=== PATIENT | female | born 1980 | race Caucasian/White ===

== ENCOUNTER 2024-10-10 13:06 | Outpatient (AMB) | payer OTHER, SELFPAY ==
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
[2024-10-10 13:20] VITALS: BP 100/60; PULSE 62; O2SAT 98; BMI 26.0
== END 2024-10-10 13:57 | disposition home or self-care (01) ==
PROVIDERS: PCP Internal Medicine; Visit Provider Internal Medicine Rheumatology
DX: M06.9 Rheumatoid arthritis, unspecified (principal); Z79.899 Other long term (current) drug therapy
CPT/HCPCS: 99214; G2211

== ENCOUNTER 2025-02-11 13:20 | Outpatient (REF) | payer OTHER, SELFPAY ==
[2025-02-11 13:41] LABS: MANUAL DIFF FLAG NO
[2025-02-11 14:28] LABS: Basophils Percent Auto 0.7 % (0-2); Eosinophils Absolute Auto 0.2 X10*3/uL (0.0-0.4); Eosinophils Percent Auto 3.8 % (0-4); Hematocrit 35.1 % (37.0-47.0); Hemoglobin 11.9 g/dl (12.0-16.0); Imm Gran Abs Auto 0.01 X10*3/uL (0.00-0.03); Imm Gran Pct Auto 0.2 % (0.0-0.4); Lymphocytes Absolute Auto 1.3 X10*3/uL (1.2-4.9); Lymphocytes Percent Auto 28.2 % (20-40); Mean Corpuscular HGB Conc 33.9 g/dl (31.0-35.0); Mean Corpuscular Hemoglobin 28.5 pg (27.0-33.0); Mean Platelet Volume 11.8 fL (9.4-12.3); Monocytes Absolute Auto 0.5 X10*3/uL (0.1-1.2); Neutrophils Absolute Auto 2.5 x10*3/uL (2.0-8.3); Neutrophils Percent Auto 55.1 % (45-73); Platelet Count 202 X10*3/uL (160-400); Red Blood Count 4.18 X10*6/uL (4.20-5.50); Red Cell Distribution Width 12.3 % (11.0-16.0); White Blood Count 4.5 X10*3/uL (4.8-10.8)
--- OUTSIDE RECORDS SUMMARY | 2025-02-11 15:01 | XMS_ITS ---
Author Organization [employer] Address [address] [place] [id number] Care Team Providers Care Marketing Administrator Name Role Phone DONNA WELCH, [facility] Primary Care Provider Un available GABI BRENNER Unavailable [phone] REASON FOR VISIT BREAST U/S ORDER Encounters Encounter Location Date Provider Diagnosis [facility] [address] [address] 08/13/2024 GABI BRENNER Inconclusive mammogr am R92.2 and Family history of malignant neoplasm of breast Z80.3 Assessments Encounter Date Diagnosis (ICD Code) Assessment Notes Treatment Notes Treatment Clinical Notes Section Notes 08/13/2024 Inconclusive mammogram (ICD-10 - R92.2) 08/13/2024 Family history of malignant neoplasm of breast (ICD-10 - Z80.3) Plan Of Treatment Pending Test Test Name Order Date Screening Bilateral Breast Ultrasound Progress Notes * KEILY VILLANUEVA:1980 (43 yo F)Acc No.[id number]:08/13/2024 Patient:?VAHE VILLANUEVAI :1980???Age:43 Y???Sex:Female Address:[address] [place] [address], [id number] Subjective: * Chief Complaints: * ???BREAST U/S ORDER * Medical History:? * Surgical History:? * Hospitalization/Major Diagno stic Procedure:? * Medications:? Objective: * Vitals:? * Physical Examination:? Assessment: * Assessment: 1.?Inconclusive mammogram - R92.2???2.?Family history of malignant neoplasm of breast - Z80.3??? Plan: * Treatment: 2.?Family history of maligna nt neoplasm of breast?Imaging: Screening Bilateral Breast Ultrasound * Procedure Codes:? * true * Date:? Generated for Ledy rodriguez/Eugenie/Júniorsmitting on:?02/11/2025 03:01 PM EDT
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
--- OUTSIDE RECORDS SUMMARY | 2025-02-11 15:01 | XMS_ITS | Continuity of Care Document ---
Author Organization [facility] Adult Address [address] [place] [id number]- Care Team Providers Care Genetic Technologist Name Role Phone Sudheer Khan MD Primary Care Physician Encounter [facility] Date(s): 01/29/25 - 02/05/[address] [address]- Encounter Diagnosis Rheumatoid arthritis(Discharge Diagnosis) - 01/29/25 Anxiety(Discharge Diagnosis) - 01/29/25 Annual physical exam(Discharge Diagnosis) - 01/29/25 Skin lump of arm(Discharge Diagnosis) - 01/29/25 Attending Physician: Sudheer Khan MD Encounter Type: Office Visit Allergies, Adverse Reactions, Alerts Substance Criticality Severity Reaction Reaction Severity Status Bactrim Lip swelling Active Immunizations Given and Recorded Vaccine Date Status Refusal Reason tetanus/diphtheria/pertussis, acel(Tdap) 1 01/29/25 Given tetanus/diphtheria/pertussis, acel(Tdap) 11/16/13 Given influenza virus vaccine, inactivated 08/18/24 Florencio rded influenza virus vaccine, inactivated 08/19/23 Florencio rded influenza virus vaccine, inactivated 07/27/22 Florencio rded influenza virus vaccine, inactivated 10/23/21 Florencio rded influenza virus vaccine, inactivated 08/26/20 Florencio rded influenza virus vaccine, inactivated 09/19/19 Florencio rded influenza virus vaccine, inactivated 08/14/19 Florencio rded influenza virus vaccine, inactivated 08/15/18 Florencio rded [id number] 12y+ bivalent booster vax 08/19/22 Recorded SARS-CoV-2 (COVID-19) mRNA BNT-162b2 vac 2 11/05/21 Given SARS-CoV-2 (COVID-19) mRNA BNT-162b2 vac 04/20/21 Recorded SARS-CoV-2 (COVID-19) mRNA BNT-162b2 vac 03/28/21 Recorded Influenza Virus Vaccine (oldterm) 07/23/20 Recorde d Influenza Virus Vaccine (oldterm) 08/08/19 Recorde d 1Result Comment: [id number] 2Result Comment: [facility]# [id number] Medications citalopram 20 mg oral tablet 20 mg, 1, tablet, By Mouth, Daily, # 90 tablet, Refills 3, Tot. Refills 3, Maintenance, 01/29/25 11:02:00 AM EDT, Route to Pharmacy Electronically, [facility] # [id number], Partial fill upon patient request if the prescription is for a schedule II opioid drug., 170, cm, 01/29/25 10:35:00 EDT, Height, 77.4, kg, 12/24/23 11:46:00 EST, Dry Weight Start Date: 01/29/25 Stop Date: 01/24/26 Status: Ordered Quantity: 90.0 Unit: tablet Repeat number: 4 hydroxychloroquine 200 mg oral tablet 400 mg, 2, tablet, By Mouth, Daily, # 180 tablet, Refills 0, Maintenance, 04/23/22 3:12:00 PM EDT, Partial fill upon patient request if the prescription is for a schedule II opioid drug. Start Date: 04/23/22 Status: Ordered Quantity: 180.0 Unit: tablet Repeat number: 1 leucovorin 5 mg oral tablet 1 tablet = 5 mg, By Mouth, Daily, # 120 tablet, 0 Refills, Maintenance, 04/23/22 3:12:00 PM EDT, Tablet, Partial fill upon patient request if the prescription is for a schedule II opioid drug. Start Date: 04/23/22 Status: Ordered Quantity: 120.0 Unit: tablet Repeat number: 1 LORazepam 0.5 mg oral tablet 0 Refills, Maintenance, 01/29/25 11:02:00 AM EDT, Partial fill upon patient request if the prescription is for a schedule II opioid drug. Start Date: 01/29/25 Status: Ordered Repeat number: 1 methotrexate 2.5 mg oral tablet 10 tablet = 25 mg, By Mouth, Every week, # 4 tablet, 0 Refills, Maintenance, 07/24/20 9:12:00 AM EDT, Tablet Start Date: 07/24/20 Status: Ordered Quantity: 4.0 Unit: tablet Repeat number: 1 PEG-3350 with Electrolytes (Eqv-GoLYTELY) oral powder for reconstitution 240 mL, By Mouth, Every 15 minutes, split prep method 1st half 5 pm evening before , 2nd half 6 hours prior to procedure, # 1 each, 0 Refills, Maintenance, 01/18/24 12:58:00 PM EST, How do you roll? 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 Rheumatoid arthritis Confirmed Active Vasovagal reaction Confirmed Active Diagnosis Diagnosis Type Effective Dates Health Status Clinical Service Informant Rheumatoid arthritis Discharge Diagnosis 01/29/25 Anxiety Discharge Diagnosis 01/29/25 Annual physical exam Discharge Diagnosis 01/29/25 Skin lump of arm Discharge Diagnosis 01/29/25 Vital Signs Most recent to oldest [Reference Range]: 1 Height 170 cm (01/29/25 10:35 AM) Weight 77.7 kg (01/29/25 10:35 AM) Oxygen Saturation [94-100 %] 100 % (01/29/25 10:35 AM) Pulse Rate [55-90 bpm] 62 bpm (01/29/25 10:35 AM) Body Mass Index [18.5-24.99 kg/m2] 26.89 kg/m2 *H* (01/29/25 10:35 AM) Blood Pressure [90-138/55-84 mm Hg] 119/ 67mm Hg (01/29/25 10:35 AM) Temperature [96.8-100.4 DegF] 97.9 DegF (01/29/25 10:35 AM) Blood pressure sites Arm, right (01/29/25 10:35 AM) Temperature Route Oral (01/29/25 10:35 AM) Social History Social History Type Response Smoking Status Former smoker; Tobac co use times per day: smoked in high school; entered on: 08/21/16 Sex Sex Representation Female (finding) Note * Rodrigo Zhang: PERFORM Event Display: Patient Education/Instruction Authored Date: [id number] Ambulatory Adult Visit Summary [facility] [address], [place] [id number] Name: LIGIA VILLANUEVA : 1980?? Visit: 01/29/2025 10:32?? Ambulatory Visit Instructions ?? Your Care Team Primary Care Provider Sudheer Khan MD? This Visit Provider Sudheer Khan MD Your Diagnosis Rheumatoid arthritis Anxiety Annual physical exam Screening for diabetes mellitus Screening for hyperlipidemia Screening for thyroid disorder Vitals Signs Temperature: 97.9 DegF Height: 170 cm Pulse Rate: 62 bpm Weight: 77.7 kg Systolic Blood Pressure: 119 mm Hg Body Mass Index:??26.89 kg/m2??High Diastolic Blood Pressure: 67 mm Hg Body surface area: 1.92 Oxygen Saturation: 100 % ?? What to do next Follow-Up Appointments Follow Up with??Sudheer Khan MD When:??02/17/2026 11:30 AM EDT Why: physical Where: [address]rd Floor [facility] [place] [address]- Future Orders CBC w/ Differential - Routine, Once, 01/29/25 10:48:00 EDT, Single or Recurring Future Order, [facility], Blood?? Lipid Panel - Routine, Once, 01/29/25 10:48:00 EDT, Single or Recurring Future Order, [facility], Blood?? Vitamin D 25 Hydroxy Level - Routine, Once, 01/29/25 10:48:00 EDT, Single or Recurring Future Order, [facility], Blood?? Complete Urinalysis (Urinalysis Complete) - Routine, Once, 01/29/25 10:48:00 EDT, Single or Recurring Future Order, [facility], Urine?? TSH Rfx on Abnormal to Free T4 - Routine, Once, 01/29/25 10:48:00 EDT, Single or Recurring Future Order, [facility], Blood?? Comprehensive Metabolic Panel - Routine, Once, 01/29/25 10:49:00 EDT, Single or Recurring Future Order, [facility], Blood?? Medications The list below reflects the information in our records and provided by you today along with any changes made during this visit. Please continue your medications until treatment is completed or stopped by your provider. If this is different from the information you have or there are other questions,please contact the prescribing provider. What How Much When Instructions Changed Citalopram (citalopram 20 mg oral tablet) 1 tab(s) Oral Daily Duration: [address] [facility] Unchanged Hydroxychloroquine (hydroxychloroquine 200 mg oral tablet) 2 tab(s) Oral Daily Unchanged Leucovorin (leucovorin 5 mg oral tablet) 1 tab(s) Oral Daily Duration: 10 doses/times Unchanged Lorazepam (LORazepam 0.5 mg oral tablet) Unchanged Methotrexate (methotrexate 2.5 mg oral tablet) 10 tab(s) Oral Every week Unchanged PEG Electrolyte Solution (PEG-3350 with Electrolytes (Eqv-GoLYTELY) oral powder for reconstitution) 240 Milliliter Oral Every 15 minutes split prep method ??1st half 5 pm evening before , ??2nd half 6 hours prior to procedure ?? Pharmacy Information [facility] # 302: [address] [place] [id number] [phone] ?? What How Much When Comments Stop Taking Diclofenac (diclofenac sodium 75 mg oral delayed releasetablet) 1 tab(s) Oral Twice a day as needed for for pain Duration: 30 Days Test Performed Below is a partial list of the tests performed during your Visit. You may have had other tests and procedures not included in this list. Please discuss all test results with your provider. CBC w/ Differential?-- Results Pending -- Comprehensive Metabolic Panel?-- Results Pending -- Lipid Panel?-- Results Pending -- TSH Rfx on Abnormal to Free T4?-- Results Pending -- Urinalysis Complete?-- Results Pending -- Vitamin D 25 Hydroxy Level?-- Results Pending -- Medications and Immunizations Administered Immunizations Given During Visit Given Vaccine Date tetanus/diphtheria/pertussis, acel(Tdap) 01/29/2025 Comments : [id number] Medications Given During Visit Medication ?? Dose ?? Route ?? Last Dose Times ?? tetanus/diphtheria/pertussis, acel(Tdap)?0.50 mL?? Intramuscular?? 29-JAN-2025 10:55:00.00?? Allergies (NKA means No Known Allergies) Bactrim??(Lip swelling) Common Emergency Awareness Tips IS IT A STROKE? Act FAST and Check for these signs: FACE Does the face look uneven? ARM Does one arm drift down? SPEECH Does their speech sound strange? TIME Call at any sign of stroke ?? Heart Attack Signs Chest discomfort: Most heart attacks involve discomfort in the center of the chest and lasts more than a few minutes, or goes away and comes back. It can feel like uncomfortable pressure, squeezing, fullness or pain. Discomfort in upper body: Symptoms can include pain or discomfort in one or both arms, back, neck, jaw or stomach. Shortness of breath: With or without discomfort. Other signs: Breaking out in a cold sweat, nausea, or lightheaded. Remember, MINUTES DO MATTER. If you experience any of these heart attack warning signs, call to get immediate medical attention! ?? Smoking can increase your chances of developing chronic health problems and can cause harmful effects to other family members in your house. If you smoke, you are strongly encouraged to quit. Please call [facility] at [phone] or [phone] 2000 ([phone]) or log in to [email or web address] for referrals to smoking cessation programs. ?? The National Suicide Prevention Hotline is available 06/06 if you or someone you know needs to find a reason to keep living. By calling 4-929-165-nosu (8636) you'll be connected to a skilled, trained counselor at a crisis center in your area. [employer] [facility] Portal You can view and manage your care through the patient portal or by using a health care sabrina of your choosing. [employer] is a website that allows you to securely view your medical information including your hospital discharge summary, office visit summaries, medications and follow-up visits. You can also request appointments, renew medications, and request access to your medical information using a health care sabrina of your choosing, or just ask a question. You can enroll at [email or web address] or register during your next office visit. [facility], in keeping with [facility] guidance, no longer requires face masks for staff, patientsor visitors in most situations. Similiar to time spent indoors at other locations, there is the chance that you were exposed to repiratory viruses during your time with us (such as flu or COVID-19). If you develop symptoms concerning for a viral respiratory infection, please seek testing (and treatment if indicated) from your medical provider or home test kit. ?? Disclaimer: The information provided is of a general nature and is intended to be used in conjunction with the recommendations and advice of your health care practitioner. Every effort has been made to ensure that the information provided is accurate and complete at the time it is provided to you however, as your needs change, or, as new information becomes available, different or additional instructions may be required. ?? If you have questions, please consult with your primary care provider or pharmacist, as appropriate. This information is not intended to serve as substitution for assessment and evaluation by a qualified health care provider. If you do not have a primary care provider, you may find a [facility] provider by calling [employer] [facility] Link at [phone]. Patient Care team information Care Team Personnel Name: Sudheer Khan MD Position: [facility] Physician - Primary Care Member Role: PCP Address: [address] [facility] [address] [place] [address]- Telecom: Care Team Related Persons Name: MARTHA GANN Name: DEMETRIUS VILLANUEVA Insurance Providers Guarantor name: LIGIA VILLANUEVA Health Plan Information #: 1 Payer: [facility] H61 Member Number: [id number] Policy Number: NA Group Number: [id number] Health Plan Information #: 2 Payer: [facility] Member Number: [id number] Policy Number: NA Group Number: [id number]
--- OUTSIDE RECORDS SUMMARY | 2025-02-11 15:01 | XMS_ITS | Clinical Summary ---
Author Organization [facility] Address [address] [place] [address] Care Team Providers Care Hardware Trainer Name Role Phone Unavailable Primary Care Provider Unavailabl e Surgical History Surgery Date Site/Laterality Comments WISDOM TOOTH EXTRACTION PROCEDURE: HISTORICAL WISDOM TEETH EXTRACTION Medical History Medical History Date Comments Anxiety state, unspecified DX:An xiety state, unspecified Other specified personal his tory presenting hazards to health(V15.89) DX:Other specifie d personal history presenting hazards to health(V15.89); COMMENT: 5 years ago abnormal pap Family History Medical History Relation Name Comments Other cancer Maternal Grandfather oral ca ncer Breast cancer Maternal Grandmother dx 03/14 1 2nd time Hypertension Maternal Grandmother Relation Name Status Comments Brother Alive Father Alive Maternal Grandfather (Age 72) [place], oral cancer Maternal Grandmother Alive Mother Alive Paternal Grandfather Paternal Grandmother Sister 1 Alive Sister 2 Alive Son Alive Social History Tobacco Use Types Packs/Day Years Used Date Smoking Tobacco: Former Cigarettes Q uit: 08/03/2008 Smokeless Tobacco: Never Alcohol Use Standard Drinks/Week Comments Yes 0 (1 standard drink = 0.6 oz pur e alcohol) Comments Unknown Sex and Gender Information Value Date Recorded Sex Assigned at Not on file Legal Sex Female 8:20 AM EST Gender Identity Not on file Sexual Orientation Not on file Obstetrics History Plan of Treatment Health Maintenance Due Date Last Done Comments Breast Cancer Screening 1982 Hepatitis B Vaccines (1 of 3 - 19+ 3-dose series) 2001 Cervical Cancer Screening: Pap Smear 2003 DTaP,Tdap,and Td Vaccines (3 - Td or Tdap) 11/16/2023 11/16/2013, 04/28/2011 COVID-19 Vaccine ( - season) 2024 11/05/2021, 04/20/2021, 03/28/2021 Depression Screening 08/30/2024 HIV Screening 08/30/2024 Hepatitis C Screening 08/30/2024 Social Influencers of Health Screening 08/30/2024 Influenza Vaccine Completed 08/18/2024, , 07/27/2022, Additional history exists HIB Vaccines Aged Out No longer eligi ble based on patient's age to complete this topic HPV Vaccines Aged Out No longer eligi ble based on patient's age to complete this topic Hepatitis A Vaccines Aged Out No long er eligible based on patient's age to complete this topic IPV Vaccines Aged Out No longer eligi ble based on patient's age to complete this topic MMR Vaccines Aged Out No longer eligi ble based on patient's age to complete this topic Meningococcal ACWY Vaccine Aged Out N o longer eligible based on patient's age to complete this topic Meningococcal B Vacine Aged Out No lo nger eligible based on patient's age to complete this topic Pneumococcal Vaccine: Pediatrics (0 to 5 Years) and At-Risk Patients (6 to 64 Years) Aged Out No longer eligible based on patient's age to complete this topic RSV Immunization Patients Under 20 months Aged Out No longer eligible based on patient's age to complete this topic Varicella Vaccines Aged Out No longer eligible based on patient's age to complete this topic [place] [address] [place] [address]
--- OUTSIDE RECORDS SUMMARY | 2025-02-11 15:01 | XMS_ITS ---
Author Name [facility] Organization Unknown Problems Problem Status Onset Date Problem Type Date of Resolution Source Inconclusive mammogram active EncounterDiagnosisAct [facility] Family history of malignant neoplasm of breast active EncounterDiagnosisAct [facility] Encounters Encounter Type Encounter Reason Primary Diagnosis Location Date Ambulatory Inconclusive mammogram Inconclusive mammogram [facility] 10/26/2024 Care Team Organization Name Specialty Phone Email Start Date End Da dina [facility] 10/30/2024 [facility] 10/27/2024
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
--- OUTSIDE RECORDS SUMMARY | 2025-02-11 15:02 | XMS_ITS | Encounter Summary ---
Author Organization [employer] Address [address] [place] [address] Care Team Providers Care Ice Cream Freezer Helper Name Role Phone Unavailable Primary Care Provider Unavailabl e Encounter Details Date Type Department Care Team (Late st Contact Info) Description 05/10/2023 Abstract [facility] ADULT DENTAL [address] [place], [place] [phone] Андрей Tyler DDS [address] [place], [place] [phone] Social History Tobacco Use Types Packs/Day Years Used Date Smoking Tobacco: Never Passive Smoke Exposure: Never Smokeless Tobacco: Never Alcohol Use Standard Drinks/Week Comments Never 0 (1 standard drink = 0.6 oz pur e alcohol) Comments Unknown Sex and Gender Information Value Date Recorded Sex Assigned at Female 05/10/2023 8:10 AM EDT Legal Sex Female 8:06 AM EDT Gender Identity Female 05/10/2023 8:10 AM EDT Sexual Orientation Straight 05/10/2023 8: 10 AM EDT COVID-19 Exposure Response Date Recorded In the last 10 days, have yo u been in contact with someone who was confirmed or suspected to have Coronavirus/COVID-19? No / Unsure 05/10/2023 8:11 AM EDT documented as of this encounter Plan of Treatment Not on file documented as of this encounter Visit Diagnoses Not on filedocumented in this encounter
--- OUTSIDE RECORDS SUMMARY | 2025-02-11 15:02 | XMS_ITS | Encounter Summary ---
Author Organization [employer] Address [address] [facility] [address] [place] [address] Care Team Providers Care Lean Six Sigma Senior Specialist Name Role Phone Unavailable Primary Care Provider Unavailabl e Encounter Details Date Type Department Care Team (Late st Contact Info) Description 05/10/2023 Abstract [facility] ADULT DENTAL [address] [place], [place] [phone] Андрей Tyler DDS [address] [place], [place] [phone] Social History Tobacco Use Types Packs/Day Years [...]
--- OUTSIDE RECORDS SUMMARY | 2025-02-11 15:02 | XMS_ITS | Clinical Summary ---
Author Organization [employer] Address [address] [place] [address] [address] [place] [address] Care Team Providers Care Staff Radiologist Name Role Phone Unavailable Primary Care Provider Unavailabl e Allergies No known active allergies Active Problems Problem Noted Date Diagnosed Date Necrosis of dental pulp 05/10/2023 Dental caries 05/10/2023 Social History Tobacco Use Types Packs/Day Years Used Date Smoking Tobacco: Never Passive Smoke Exposure: Never Smokeless Tobacco: Never Tobacco Cessation:Counseling Given: No Alcohol Use Standard Drinks/Week Comments Never 0 (1 standard drink = 0.6 oz pur e alcohol) Comments Unknown Sex and Gender Information Value Date Recorded Sex Assigned at Female 05/10/2023 8:10 AM EDT Legal Sex Female 8:06 AM EDT Gender Identity Female 05/10/2023 8:10 AM EDT Sexual Orientation Straight 05/10/2023 8: 10 AM EDT Plan of Treatment Health Maintenance Due Date Last Done Comments Dental Oral Exam 1982 Dental Prophylaxis 1982 Dental X-Ray: Bitewings 1982 Dental X-Ray: Full Mouth 1982 Depression Screening 1982 HIV Screening 1982 SDOH Screening 1982 Alcohol/Substance Use Screening 1994 Family Planning (PISQ) 1997 Hepatitis C Screening 2000 Hepatitis B Vaccines (1 of 3 - 19+ 3-dose series) 2001 Pap Smear 2003 Cervical Cancer Screening 2012 HPV/Cotest 2012 Mammogram 2022 DTaP/Tdap/Td Vaccines (2 - Td or Tdap) 11/16/2023 11/16/2013 Tobacco Screening 05/10/2024 05/10/2023 COVID-19 Vaccine ( season) 2024 08/19/2022, 11/05/2021, 04/20/2021, Additional history exists Influenza Vaccine (#1) 2024 2, 07/27/2022, 10/23/2021, Additional history exists Zoster Vaccines (1 of 2) 2032 RSV Patients and Patients Aged 60 years or older (1 - 1-dose 75+ series) 2057 HIB Vaccines Aged Out No longer eligi [...] patient's age to complete this topic Meningococcal Vaccine Aged Out No isaac mahsa eligible based on patient's age to complete this topic Pneumococcal Vaccine: Pediatrics (0 to 5 Years) and At-Risk Patients (6 to 49) Years) Aged Out No longer eligible based on patient's age to complete this topic RSV under 20 months Aged Out No longe r eligible based on patient's age to complete this topic Rotavirus Vaccines Aged Out No longer eligible based on patient's age to complete this topic Insurance DENTAL - C[employer] DENTAL PPO
--- OUTSIDE RECORDS SUMMARY | 2025-02-11 15:02 | XMS_ITS | Encounter Summary ---
Author Organization [employer] Address [address] [facility] [address] [place] [address] Care Team Providers Care Top Loader Name Role Phone Unavailable Primary Care Provider Unavailabl e Encounter Details Date Type Department Care Team (Late st Contact Info) Description 05/10/2023 Abstract [facility] ADULT DENTAL [address] [place], [place] [phone] Андрей Tyler DDS [address] [place], [place] [phone] Social History Tobacco Use Types Packs/Day Years [...]
--- OUTSIDE RECORDS SUMMARY | 2025-02-11 15:02 | XMS_ITS | Patient Health Record ---
Author Organization [facility] Address [address] [place] [address] Care Team Providers Care Baling Machine Operator Name Role Phone DONNA WELCH, [facility] Primary Care Provider Un available BRENNER, LISA Unavailable [phone] Allergies Allergen (clinical drug ingredient) Drug/Non Drug Allergy documented on EMR Reaction Allergy Type Onset Date Status sulfamethoxazole / trimethoprim Bactrim sob Drug Allergy Active Reason For Referral No Information Medications Medication SIG (Take, Route, Frequency, Duration) Notes Start Date End Date Status LORazepam 0.5 MG 1 tablet at bedtime as needed Orally Once a day Active Hydroxychloroquine Sulfate 200 MG as directed Orally Active Methotrexate (Anti-Rheumatic) 2.5 MG as directed Orally Active Leucovorin Calcium 5 MG 1 tablet Orally for 30 day(s) once weekly after methotrexate Active Citalopram Hydrobromide 10 MG Oral for 30 Days Active Social History Tobacco Use: Social History [...] Problem Status W/U Status Risk Notes Problem Anxiety disorder (427139366) Anxiety disorder, unspecified (F41.9) Active confirmed Problem Uncomplicated asthma (disorder) (058917913) Unspecified asthma, uncomplicated (J45.909) Active confirmed Problem Rheumatoid arthritis (20292654) Rheumatoid arthritis, unspecified (M06.9) Active confirmed Problem Fibrocystic breast changes (67617915) Diffuse cystic mastopathy of unspecified breast (N60.19) Active confirmed Problem Abnormal findings on diagnostic imaging of breast (346824380) Other abnormal and inconclusive findings on diagnostic imaging of breast (R92.8) Active confirmed Problem Deep dyspareunia (999571894) Deep dyspareunia (N94.12) Active confirmed Problem COVID-19 (557667764) COVID-19 (U07.1) Active confirmed Vital Signs Temperature 97.1 degrees Fahrenheit 02/27/2024 Blood pressure diastolic 80 mm Hg 02/27/2024 Height 67 in 02/27/2024 Blood pressure systolic 110 mm Hg 02/27/2024 Weight 164 lbs 02/27/2024 BMI 25.68 kg/m2 02/27/2024 Encounters Encounter Location Date Provider [facility] [place] [address] [place] [address] 02/27/2024 GABI BRENNER Encounter for gynecological examination (general) (routine) without abnormal findings Z01.419 ; Encounter for screening mammogram for malignant neoplasm of breast Z12.31 and Deep dyspareunia N94.12 [facility] [place] [address] [place] [address] 08/13/2024 GABI BRENNER Inconclusive mammogr am R92.2 [...] malignant neoplasm of breast (ICD-10 - Z12.31) 08/13/2024 Inconclusive mammogram (ICD-10 - R92.2) 08/13/2024 Family history of malignant neoplasm of breast (ICD-10 - Z80.3) 02/27/2024 Deep dyspareunia (ICD-10 - N94.12) Likely due to scarring from c-sections to anterior abdominal wall. Advised positions where she can control depth of penetration or using a penile donut. She is relieved that there is a reason for this. Plan Of Treatment Pending Test Test Name Order Date Urinalysis 06/25/2020 Urinalysis 07/14/2021 Ultrasound : Pelvic 05/25/2017 ONE SWAB 07/14/2021 THIN PREP,HPV,MAYLIN IF HPV+ (>29YR)(SCRN) 03/08/2017 Screening Bilateral Breast Ultrasound Screening Bilateral Breast Ultrasound Screening Bilateral Breast Ultrasound Screening Bilateral Breast Ultrasound MM Digital Screening Mammogram 3D 2022 MM Digital Screening Mammogram 3D 2023 MM Digital Screening Mammogram 3D 2020 BILATERAL BREAST ULTRASOUND 06/10/2021 Future Test Test Name Order Date Screening Bilateral Breast Ultrasound Insurance Providers Payer Name Payer Address Payer Phone Subscriber Number Group Number Insured Name Patient Relationship to Insured Coverage Start Date Coverage End Date [facility] [[email or web address] [address] [address] [place], [place] [id number] LIGIA VILLANUEVA Self - patient is the insured Medical (General) History Medical History History ICD Code Unspecified asthma, uncomplicated J45.90 9 Anxiety disorder, unspecified F41.9 Diffuse cystic mastopathy of unspecified breast N60.19 Rheumatoid arthritis, unspecified M06.9 COVID-19 U07.1 Surgical History Surgery Date(Month/Year) c section 2008 c section 2013 c section 2014 inguinal hernia repair 2013 tubal ligation 2014 Hospitalization History Reason Date(Month/Year) see surgical hx
[2025-02-11 15:04] LABS: Erythrocyte Sedimentation Rate 7 MM/HR (0-20)
[2025-02-11 15:17] LABS: Aspartate Amino Transferase 21 U/L (5-31); Estimated Glomerular Filt Rate > 60
[2025-02-11 16:03] LABS: Alanine Aminotransferase 27 U/L (0-31)
[2025-02-12 08:17] LABS: HBc Num1 0.14 S/CO (0.00-0.79); HBsAGNum1 0.31 S/CO (0.00-0.99); Hepatitis B Core Antibody Nonreactive (Nonreactive); Hepatitis B Surface Antigen Negative (Negative); ~HepC Num1 0.14 S/CO (0.00-0.79); ~Hepatitis B Surface Antibody REACTIVE (Nonreactive); ~Hepatitis C Antibody Nonreactive (Nonreactive)
[2025-02-14 03:23] LABS: TS Negative Control Passed; TS Panel A 0; TS Panel B 0; TS Positive Control Passed; TSpotTB Negative (Negative)
== END 2025-02-11 13:21 | disposition home or self-care (01) ==
LOC: HO.LAB 13:20
PROVIDERS: PCP Internal Medicine; Visit Provider Internal Medicine Rheumatology
DX: M06.9 Rheumatoid arthritis, unspecified (principal); Z79.899 Other long term (current) drug therapy
CPT/HCPCS: 36415; 82565; 84450; 84460; 85025; 85652; 86481; 86704; 86706; 86803; 87340

== ENCOUNTER 2025-02-12 10:37 | Outpatient (AMB) | payer OTHER, SELFPAY ==
--- NOTE | 2025-02-12 10:39 | A.OFFVIS_ITS ---
Vital Signs 02/12/25 10:41 Height 5 ft 7 in Weight 172 lb 2.896 oz BMI 27.0 BP 110/64 Blood Pressure Location Lt brachial Position Sitting Pulse 69 Pulse Source Pulse Oximeter Pulse Oximetry (%) 98 Oxygen Delivery Method Room Air Intake Visit Reasons: follow up 3mo Intake Note: Patient presents for RA. Allergies sulfamethoxazole [From Bactrim] Allergy (Verified 02/12/25 10:43) Swelling trimethoprim [From Bactrim] Allergy (Verified 02/12/25 10:43) Swelling HPI HPI follow up 3mo: Details: She had 1 month relief after prednisone course. Pain and swelling in her joints have returned. She has difficulty with functioning but continues to do her tasks. She has increased fatigue in the last 2 months. Multiple joints are sore. She had to take time off intermittently due to RA being uncontrolled. Her boss has given her some push back when she needs a day off. She is very teary this visit. She recently had labs done. TB test is pending. PFSH Family History (Updated 10/10/24 @ 13:27 by LAKHWINDER Yusuf) Father Colorectal cancer Brother Hypertension Social History (Updated 10/10/24 @ 13:26 by LAKHWINDER Yusuf) Household Members: Family Housing: House Alcohol intake: former Patient Tobacco Use Status: Former Tobacco user Cigarettes Per Day: 0.25 Years Smoked: 6 Review of Systems Const All systems reviewed & are unremarkable except as noted in HPI and below Physical Exam Vital Signs: Last Vital Signs Pulse 69 02/12/25 10:41 BP 110/64 02/12/25 10:41 Pulse Ox 98 02/12/25 10:41 Oxygen Delivery Method Room Air 02/12/25 10:41 BMI result Body Mass Index 27.0 Const Other: General: Comfortable CVS: RRR Respiratory: clear to auscultation bilaterally. Good respiratory effort Skin: No lesions seen MSK: Tender bilateral shoulders, elbows wrists, MCPs, PIPs, IPs. Synovitis of multiple PIP and bilateral wrists right worse than left. Limited range of motion of shoulders with abduction 120 degrees. Normal internal and external rotation of shoulders but with pain. Tender bilateral knees and ankles. Normal range of motion of lower extremities. Assessment & Plan Assessment & Plan (1) Rheumatoid arthritis: Comment: Rheumatoid arthritis is not controlled on double therapy with methotrexate and hydroxychloroquine. High disease activity. Last visit we discussed side effects, drug monitoring and benefits of Enbrel. She did not have labs done for drug monitoring until recently. TB test is pending. She agreed to try another course of prednisone. She has found benefit with prednisone course over Depo- Medrol IM given to her in clinic. Rheumatology history: History of seronegative RA. She has been on methotrexate since 12/03/2021 present. Humira was started 02/01/2020 because depression and aggression. Hydroxychloroquine was started 08/03/2021 to present. Code(s): M06.9 - Rheumatoid arthritis, unspecified Category: Medical Plan: Labs for drug monitoring on high-risk medication reviewed. TB test is pending. As soon as TB test is resulted, I will start PA process for Enbrel subcutaneous injection, which will replace hydroxychloroquine Continue methotrexate 20 mg once weekly Continue leucovorin 5 mg the day after you take methotrexate Continue hydroxychloroquine 300 mg daily. 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
[2025-02-12 10:41] VITALS: BP 110/64; PULSE 69; O2SAT 98; BMI 27.0
--- OUTSIDE RECORDS SUMMARY | 2025-02-12 12:38 | XMS_ITS | Clinical Summary ---
Author Organization [facility] Address [address] [place] [address] Care Team Providers Care Despatching And Receiving Clerk Name Role Phone Unavailable Primary Care Provider [...] patient's age to complete this topic [place] [address] [place] [address]
--- OUTSIDE RECORDS SUMMARY | 2025-02-12 12:38 | XMS_ITS ---
Author Organization [facility] Address [address] [place] [address] Care Team Providers Care Stripper Latex Name Role Phone DONNA WELCH, [facility] Primary Care Provider Un available GABI BRENNER Unavailable [phone] REASON FOR VISIT BREAST U/S ORDER Encounters Encounter Location Date Provider Diagnosis [facility] [address] [address] 08/13/2024 GABI BRENNER Inconclusive mammogr am R92.2 [...] Notes * KEILY VILLANUEVA:1980 (43 yo F)Acc No.[id number]:08/13/2024 Patient:?VAHE VILLANUEVAI :1980???Age:43 Y???Sex:Female Address:[address] [place] [address], [address] Subjective: * Chief Complaints: * ???BREAST U/S [...] true * Date:? Generated for Ledy rodriguez/Eugenie/Júniorsmitting on:?02/12/2025 12:38 PM EDT
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
--- OUTSIDE RECORDS SUMMARY | 2025-02-12 12:39 | XMS_ITS | Encounter Summary ---
Author Organization [employer] Address [address] [facility] [facility] 7[address] [place] [address] Care Team Providers Care Hat Cleaner Name Role Phone Unavailable Primary Care Provider Unavailabl e Encounter Details Date Type Department Care Team (Late st Contact Info) Description 05/10/2023 Abstract [facility] ADULT DENTAL [address] [place], [place] [phone] Андрей Tyler DDS [address] [place], [place] [phone] Social History Tobacco Use Types Packs/Day Years [...]
--- OUTSIDE RECORDS SUMMARY | 2025-02-12 12:39 | XMS_ITS ---
Author Organization [facility] Address [address] [place] [address] Care Team Providers Care Trimming Machine Operator Name Role Phone DONNA WELCH, [facility] Primary Care Provider Un available BRENNER, GABI Unavailable [phone] Allergies Allergen (clinical drug ingredient) Drug/Non Drug Allergy documented on EMR Reaction Allergy Type Onset Date Status sulfamethoxazole / trimethoprim Bactrim sob Drug Allergy Active REASON FOR VISIT Annual BYPRODUCTS OPERATOR Physical Medications Medication SIG (Take, Route, Frequency, [...] Abnormal findings on diagnostic imaging of breast (399616815) Other abnormal and inconclusive findings on diagnostic imaging of breast (R92.8) Active confirmed Vital Signs Temperature 97.1 degrees Fahrenheit 02/07/20 24 Blood pressure systolic 120 mm Hg 02/07/20 24 Blood pressure diastolic 72 mm Hg 024 Height 67 in 02/07/2024 Weight 169 lbs 02/07/2024 BMI 26.47 kg/m2 02/07/2024 Encounters Encounter Location Date Provider Diagnosis [address] [place] [address] 02/07/2024 GABI BRENNER Encounter for gynecological examination [...] Follow Up: 1 Year, Reason: Y early Multimedia Educational Specialist Exam Progress Notes * FRANCES VILLANUEVAB:1980 (44 yo F)Acc No.[id number]:02/07/2024 PROGRESS NOTES Patient:GER SHEETS Provider:?GABI BRENNER MD :1980???Age:43 Y???Sex:Female D ate:02/07/2024 Address:[address] [place], [place] [id number] Pcp:JAISON THOMPSON MD Subjective: * Chief Complaints: * ???1. Annual BYPRODUCTS OPERATOR Physical. * HPI: ???Constitutional:? 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 She has been in state of health since her last exam. She has the following concerns: She has received the [employer] Covid-19 vaccine and booster. Relationship status: for [...] exercises x days/week by . * ROS:?Annual Multimedia Educational Specialist Exam ROS:?Bowel habit changes?denies.?Bladder symptoms?denies.?Vaginal discharge, unusual?denies.?Vaginal itch or odor?denies.?abnormal bleeding?denies.?weight or appetite changes?denies.?Chest pains, SOB?denies.?depression?denies.?Breast:?Denies?Breast lump.?Denies?Nipple discharge.?Hematology:?Denies?Swollen glands.?Skin:?Patient denies?changing moles.?Psychiatric:?Denies?Anxiety.? * Medical History:?Unspecified asthma, uncomplicated, Anxiety disorder, unspecified, Diffuse cystic mastopathy of unspecified breast, Rheumatoid arthritis, unspecified. * Multimedia Educational Specialist History:?/ Para?3.?Sexual activity?currently sexually active.?Last Pap Smear:?06/03/2020 [...] children. ?Marital status: , Miguel. 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 ?Others at home: mother. ?Pets: cats: 2 [...] no acute distress, well developed, well nourished, layout mechanic present in room.?HEAD:?normocephalic, atraumatic.?NECK/THYROID:?neck supple, full range [...] * Follow Up:?1 Year (Reason: Y early Multimedia Educational Specialist Exam) * Images: Billing Information: * Visit Code:? 01273 Preventive Care Est Pt. Age 40-64. * Procedure Codes:? 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 She has been in state of health since her last exam. She has the following concerns: She has received the [employer] Covid-19 vaccine and booster. Relationship status: for [...] ac lola distress, well developed, well nourished, layout mechanic present in room HEAD: normocephalic, atrau matic [...]
--- OUTSIDE RECORDS SUMMARY | 2025-02-12 12:39 | XMS_ITS | Clinical Summary ---
Author Organization [employer] Address [address] [place] [address] 7[address] [place] [address] Care Team Providers Care Ethylbenzene Cracking Supervisor Name Role Phone Unavailable Primary Care Provider [...]
--- OUTSIDE RECORDS SUMMARY | 2025-02-12 12:39 | XMS_ITS | Encounter Summary ---
Author Organization [employer] Address [address] [facility] 7t [place] [address] Care Team Providers Care Tumbling And Rolling Supervisor Name Role Phone Unavailable Primary Care Provider Unavailabl e Encounter Details Date Type Department Care Team (Late st Contact Info) Description 05/10/2023 Abstract [facility] ADULT DENTAL [address] [place], [place] [phone] Андрей Tyler DDS [address] [place], [place] [phone] Social History Tobacco Use Types Packs/Day Years [...]
--- OUTSIDE RECORDS SUMMARY | 2025-02-12 12:39 | XMS_ITS | Encounter Summary ---
Author Organization [employer] Address [address] [facility] 7t [place] [address] Care Team Providers Care It Program Manager Name Role Phone Unavailable Primary Care Provider Unavailabl e Encounter Details Date Type Department Care Team (Late st Contact Info) Description 05/10/2023 Abstract [facility] ADULT DENT[facility] [address] [place], [place] [phone] Андрей Tyler DDS [address] [place], [place] [phone] Social History Tobacco Use Types Packs/Day Years [...]
--- OUTSIDE RECORDS SUMMARY | 2025-02-12 12:39 | XMS_ITS | Patient Health Record ---
Author Organization [facility] Address [address] [place] [address] Care Team Providers Care Japanese Professor Name Role Phone DONNA WELCH, [facility] Primary Care Provider Un available BRENNER, LISA Unavailable [phone] Allergies Allergen (clinical drug ingredient) Drug/Non Drug [...] W/U Status Risk Notes Problem Anxiety disorder (859272142) Anxiety disorder, unspecified (F41.9) Active confirmed Problem Uncomplicated asthma (disorder) (913880025) Unspecified asthma, uncomplicated (J45.909) Active confirmed Problem Rheumatoid arthritis (68535802) Rheumatoid arthritis, unspecified (M06.9) Active confirmed Problem Fibrocystic breast changes (65453914) Diffuse cystic mastopathy of unspecified breast (N60.19) Active confirmed Problem Abnormal findings on diagnostic imaging of breast (821573804) Other abnormal and inconclusive findings on diagnostic imaging of breast (R92.8) Active confirmed Problem Deep dyspareunia (317672548) Deep dyspareunia (N94.12) Active confirmed Problem COVID-19 (058519725) COVID-19 (U07.1) Active confirmed Vital Signs Temperature 97.1 degrees Fahrenheit 02/27/2024 Blood pressure diastolic 80 mm Hg 02/27/2024 Height 67 in 02/27/2024 Blood pressure systolic 110 mm Hg 02/27/2024 Weight 164 lbs 02/27/2024 BMI 25.68 kg/m2 02/27/2024 Encounters Encounter Location Date Provider Diagnosis [facility] [place] [address] [place] [address] 02/27/2024 GABI BRENNER Encounter for gynecological examination (general) (routine) without abnormal findings Z01.419 ; Encounter for screening mammogram for malignant neoplasm of breast Z12.31 and Deep dyspareunia N94.12 [facility] [place] [address] [place] [address] 08/13/2024 GABI BRENNER Inconclusive mammogr am R92.2 [...] Insured Coverage Start Date Coverage End Date [facility] [address] [address] [place], [place] [id number] LIGIA VILLANUEVA Self - patient is the [...]
== END 2025-02-12 11:47 | disposition home or self-care (01) ==
LOC: HO.RHES 10:37
PROVIDERS: PCP Internal Medicine; Visit Provider Internal Medicine Rheumatology
DX: M06.9 Rheumatoid arthritis, unspecified (principal); Z79.899 Other long term (current) drug therapy
CPT/HCPCS: 99214; G2211

== ENCOUNTER 2025-06-03 11:45 | Outpatient (REF) | payer OTHER, SELFPAY ==
--- OUTSIDE RECORDS SUMMARY | 2025-06-03 12:48 | XMS_ITS ---
Author Name [facility] Organization Unknown Problems Problem Status Onset Date Problem Type Date of Resolution Source Family history of malignant neoplasm of breast active EncounterDiagnosisAct CT_THJ Inconclusive mammogram active EncounterDiagnosisAct CT_THJ Encounters Encounter Type Encounter Reason Primary Diagnosis Location Date Ambulatory Inconclusive mammogram Inconclusive mammogram [facility] 10/26/2024 Care Team Organization Name Specialty Phone Email Start Date End Da te [facility] 10/30/2024 [facility] 10/27/2024
--- OUTSIDE RECORDS SUMMARY | 2025-06-03 12:48 | XMS_ITS | Encounter Summary ---
Author Organization [employer] Address [address] [facility] 7t [place] [address] Care Team Providers Care Residential Assistant Name Role Phone Unavailable Primary Care Provider Unavailabl e Encounter Details Date Type Department Care Team (Late st Contact Info) Description 05/10/2023 Abstract [facility] ADULT DENTAL [address] [place], [place] [phone] Андрей Tyler DDS [address] [place], [place] [phone] Social History Tobacco Use Types Packs/Day Years [...]
--- OUTSIDE RECORDS SUMMARY | 2025-06-03 12:48 | XMS_ITS | Clinical Summary ---
Author Organization [facility] Address [address] [place] [address] Care Team Providers Care Video Game Technician Name Role Phone Unavailable Primary Care Provider [...] or Tdap) 11/16/2023 11/16/2013, 04/28/2011 COVID-19 Vaccine (4 - season) 2024 11/05/2021, 04/20/2021, 03/28/2021 HIV Screening 08/30/2024 Hepatitis C Screening 08/30/2024 Social Influencers of Health Screening 08/30/2024 Depression Screening 11/14/2024 Influenza Vaccine (#1) 2025 , 08/19/2023, 07/27/2022, Additional history exists HIB Vaccines Aged [...] age to complete this topic Meningococcal B Vaccine Aged Out No l onger eligible based on patient's age to complete this topic Pneumococcal Vaccine: Pediatrics (0 to 5 Years) and At-Risk Patients (6 to 49 Years) Aged Out No longer eligible based on patient's age to complete this topic RSV Immunization Patients Under 20 months Aged Out No longer eligible based on patient's age to complete this topic Varicella Vaccines Aged Out No longer eligible based on patient's age to complete this topic [place] [address] [address]
--- OUTSIDE RECORDS SUMMARY | 2025-06-03 12:48 | XMS_ITS | Patient Health Record ---
Author Organization [facility] Address [address] [place] [address] Care Team Providers Care Crystallographer Name Role Phone DONNA WELCH, [facility] Primary Care Provider Un available GABI BRENNER Unavailable [phone] Allergies Allergen (clinical drug ingredient) Drug/Non Drug Allergy documented on EMR Reaction Allergy Type Onset Date Status sulfamethoxazole / trimethoprim Bactrim sob Drug Allergy Active Results Component Value Reference Range Notes Urinalysis Reviewed date:04/24/2025 05:39:54 PM Interpretation: Performing Lab: Notes/Report: NITRITE Neg PH 6.0 PROTEIN trace S.G 1.005 WBC Neg GLUCOSE Neg KETONES Neg UROBILINOGEN Neg BILIRUBIN Neg BLOOD Neg PDF Report Reviewed date:04/26/2025 11:58:41 AM Interpretation: Performing Lab:[facility], [address], [address] [facility], [employer], Phone - [phone], Director - [facility] Notes/Report: Chlamydia/GC Amplification Reviewed date:04/29/2025 09:36:32 AM Interpretation: Performing Lab:[facility] [address], [address], [place], Phone - [phone], Director - [facility] Notes/Report: Chlamydia trachomatis, DARIEL Negative Negative Neisseria gonorrhoeae, DARIEL Negative Negative Reason For Referral No Information Medications Medication SIG (Take, Route, Frequency, Duration) Notes Start Date End Date Status Sprintec 28 0.25-35 MG-MCG 1 tablet Oral ly Once a day, skipping placebo pills for the first 3 packs; Duration: 84 days 04/24/2025 Active Enbrel Active Citalopram Hydrobromide 20 MG 1 tablet Orally Once a day; Duration: 30 days Active LORazepam 0.5 MG 1 tablet at [...] W/U Status Risk Notes Problem Anxiety disorder (159911475) Anxiety disorder, unspecified (F41.9) Active confirmed Problem Uncomplicated asthma (disorder) (158957103) Unspecified asthma, uncomplicated (J45.909) Active confirmed Problem Rheumatoid arthritis (02807447) Rheumatoid arthritis, unspecified (M06.9) Active confirmed Problem Fibrocystic breast changes (24265647) Diffuse cystic mastopathy of unspecified breast (N60.19) Active confirmed Problem Abnormal findings on diagnostic imaging of breast (053927069) Other abnormal and inconclusive findings on diagnostic imaging of breast (R92.8) Active confirmed Problem Deep dyspareunia (504655843) Deep dyspareunia (N94.12) Active confirmed Problem COVID-19 (718099645) COVID-19 (U07.1) Active confirmed Vital Signs Temperature 98.6 degrees Fahrenheit 04/24/2025 Blood pressure diastolic 68 mm Hg 04/24/2025 Height 67 in 04/24/2025 Blood pressure systolic 112 mm Hg 04/24/2025 Weight 170 lbs 04/24/2025 BMI 26.62 kg/m2 04/24/2025 Encounters Encounter Location Date Provider Diagnosis Total [address] [place] [address] 04/24/2025 GABI BRENNER Pelvic Pain R10.2 Total [facility] [address] [place] [address] 08/13/2024 GABI BRENNER Inconclusive mammogr am R92.2 and Family history of malignant neoplasm of breast Z80.3 Assessments Encounter Date Diagnosis (ICD Code) Assessment Notes Treatment Notes Treatment Clinical Notes Section Notes 08/13/2024 Inconclusive mammogram (ICD-10 - R92.2) 04/24/2025 Pelvic Pain (ICD-10 - R10.2) Pain is most consistent with endometriosis and so will treat accordingly. No contraindications to combined hormonal contraception use. Symptoms of thromboembolic events weree reviewed using the ACHES acronym. Will rule out ovarian pathology/uterine fibroids with ultrasound. 08/13/2024 Family history of malignant neoplasm of breast (ICD-10 - Z80.3) Plan Of Treatment Pending Test Test Name Order Date Urinalysis 06/25/2020 Urinalysis 07/14/2021 Ultrasound : Pelvic 05/25/2017 ONE SWAB 07/14/2021 THIN PREP,HPV,MAYLIN IF HPV+ (>29YR)(SCRN) 03/08/2017 Screening Bilateral Breast Ultrasound Screening Bilateral Breast Ultrasound Screening Bilateral Breast Ultrasound Screening Bilateral Breast Ultrasound ULTRASOUND: PELVIC W/TRANSVAGINAL 2024 MM Digital Screening Mammogram 3D 2022 MM Digital Screening Mammogram 3D 2023 MM Digital Screening Mammogram 3D 2020 BILATERAL BREAST ULTRASOUND 06/10/2021 Chlamydia/GC Amplification-[id number] 2024 Future Test Test Name Order Date Screening Bilateral Breast Ultrasound Next Appt Details Provider Name:GABI MAGANA Emerita, 08/26/2025 11:00:00 AM, [address], [address], [place], [address], Insurance Providers Payer Name Payer Address Payer Phone Subscriber Number Group Number Insured Name Patient Relationship to Insured Coverage Start Date Coverage End Date R [address] [address] [place], [place] [phone] [phone] [id number] LIGIA VILLANUEVA Self - patient is the [...]
[2025-06-03 14:04] LABS: MANUAL DIFF FLAG NO
[2025-06-03 14:13] LABS: Hematocrit 32.9 % (37.0-47.0); Hemoglobin 11.2 g/dl (12.0-16.0); Imm Gran Abs Auto 0.01 X10*3/uL (0.00-0.03); Imm Gran Pct Auto 0.3 % (0.0-0.4); Lymphocytes Absolute Auto 1.3 X10*3/uL (1.2-4.9); Mean Corpuscular HGB Conc 34.0 g/dl (31.0-35.0); Mean Corpuscular Hemoglobin 28.4 pg (27.0-33.0); Mean Corpuscular Volume 83.3 fL (80.0-98.0); NRBC Abs Auto 0.000 X10*3/uL (0.0-0.012); NRBC Pct Auto 0.0 /100WBC (0.0-0.2); Platelet Count 177 X10*3/uL (160-400); Red Blood Count 3.95 X10*6/uL (4.20-5.50); White Blood Count 3.9 X10*3/uL (4.8-10.8)
[2025-06-03 14:29] LABS: Alanine Aminotransferase 21 U/L (0-31); Aspartate Amino Transferase 21 U/L (5-31); Estimated Glomerular Filt Rate > 60
== END 2025-06-03 11:46 | disposition home or self-care (01) ==
LOC: HO.WFDLDS 11:45
PROVIDERS: Visit Provider Internal Medicine Rheumatology
DX: M06.9 Rheumatoid arthritis, unspecified (principal); Z79.899 Other long term (current) drug therapy
CPT/HCPCS: 36415; 82565; 84450; 84460; 85025; 85652; 86140

== ENCOUNTER 2025-06-04 10:21 | Outpatient (AMB) | payer OTHER, SELFPAY ==
--- NOTE | 2025-06-04 10:17 | A.OFFVIS_ITS ---
Vital Signs 06/04/25 10:23 Height 5 ft 7 in Weight 176 lb 4 oz BMI 27.6 BP 120/80 Blood Pressure Location Lt brachial Position Sitting Pulse 65 Pulse Source Pulse Oximeter Temp 97 F Intake Visit Reasons: 3 Months Intake Note: Patient presents for RA. Allergies sulfamethoxazole (From Bactrim) Allergy (Verified 06/04/25 10:17) Swelling trimethoprim (From Bactrim) Allergy (Verified 06/04/25 10:17) Swelling HPI HPI 3 Months: Details: On enrbrel. SHe feels better. She is participating in the gym. She went for 4 mile walk with her daughter. Morning stiffness is hours. The worst morning stiffness in the 1st 2 hours. She is back on enbrel after ear infection and strep throat. She took her 1st dose last Tuesday. Impetigo x2 flares since starting enbrel with 1st flare a month after starting Enbrel than the other one 1-2 months after treated with topical antibiotic via teledoc visit. Last impetigo flare affecting her upper lip was a year ago. No sick contacts. PFSH Family History Father Colorectal cancer Brother Hypertension Social History Household Members: Family Housing: House Alcohol intake: former Patient Tobacco Use Status: Former Tobacco user Cigarettes Per Day: 0.25 Years Smoked: 6 Physical Exam Vital Signs: Last Vital Signs Temp 97 F 06/04/25 10:23 Pulse 65 06/04/25 10:23 BP 120/80 06/04/25 10:23 BMI result Body Mass Index 27.6 Const Other: General: Comfortable CVS: RRR Respiratory: clear to auscultation bilaterally. Good respiratory effort Skin: No lesions seen MSK: Tender bilateral shoulders, elbows wrists, left MCPs,bilateral PIPs, knees, left ankle and bilateral MTPs. No synovitis. Full range of motion of upper extremities and lower extremities with pain. Assessment & Plan Assessment & Plan (1) Rheumatoid arthritis: Comment: Rheumatoid arthritis is better controlled with monotherapy on Enbrel but she has had recurrent infections. Synovitis has resolved with Enbrel and prednisone course. She has worsening leukopenia on Enbrel. We discussed next steps in DMARD treatment with another TNF inhibitor since she has had good response without mood disturbance. She does not feel well on methotrexate and does not want to continue it. We discussed side effects, benefits and drug monitoring on Simponi. Rheumatology history: History of seronegative RA. She has been on methotrexate since 12/03/2021 present. Humira was started 02/01/2020 because depression and aggression. Hydroxychloroquine was started 08/03/2021 to present. Enbrel 02/2025- changed to Simponi due to recurrent infections and worsening leukopenia. Code(s): M06.9 - Rheumatoid arthritis, unspecified Category: Medical Plan: Labs for drug monitoring on high-risk medication reviewed. She will repeat CBC in 2 weeks Continue Enbrel weekly subcutaneous injection Simponi 50 mg every 4 week subcutaneous injection prescribed. I will process PA. she will need nurse teaching visit for 1st dose administration. She will also need labs 4 weeks after starting Simponi with CBC, creatinine, AST, ALT Return to clinic in 3 months (2) Other longterm (current) drug therapy: Code(s): Z79.899 - Other business line manager (current) drug therapy Category: Medical Plan: See above. Orders: Orders Complete Blood Count Auto Diff 2 Weeks M06.9 - Rheumatoid arthritis, unspecified, Z79.899 - Other business line manager (current) drug therapy Medications: New golimumab (Simponi) First dose administration in office with nurse visit. Labs due 4 weeks after first dose. 50 mg (0.5 mL) subcut Q4W 0.5 mL 2RF Changed From etanercept (Enbrel SureClick) First dose administration in office. She needs to schedule nurse teaching visit. PA needed. Enbrel will replace hydroxychloroquine. Labs needed 1 month after starting Enbrel. 50 mg subcut QWEEK 4 mL 2RF To etanercept (Enbrel SureClick) 50 mg subcut QWEEK 4 mL 2RF Coding Level of Care Code Est Pt Level 4 (38553) Complex EM visit Add On G2211 Diagnoses Rheumatoid arthritis M06.9 Other business line manager (current) drug therapy Z79.899
[2025-06-04 10:23] VITALS: BP 120/80; PULSE 65; TEMP 36.1; BMI 27.6
--- OUTSIDE RECORDS SUMMARY | 2025-06-04 11:28 | XMS_ITS | Patient Health Record ---
Author Organization [facility] Address [address] [place] [address] Care Team Providers Care Rn Homecare Name Role Phone DONNA WELCH, [facility] Primary Care Provider Un available GABI BRENNER Unavailable [phone] Allergies Allergen (clinical drug ingredient) Drug/Non Drug Allergy documented on EMR Reaction Allergy Type Onset Date Status sulfamethoxazole / trimethoprim Bactrim sob Drug Allergy Active Results Component Value Reference Range Notes PDF Report Reviewed date:04/26/2025 11:58:41 AM Interpretation: Performing Lab:[facility], [address], [address], [place], Phone - [phone], Director - [facility] Notes/Report: Chlamydia/GC Amplification Reviewed date:04/29/2025 09:36:32 AM Interpretation: Performing Lab:[facility], [address], [address], [place], Phone - [phone], [facility] Notes/Report: Chlamydia trachomatis, DARIEL Negative Negative Neisseria gonorrhoeae, DARIEL Negative Negative Urinalysis Reviewed date:04/24/2025 05:39:54 PM Interpretation: Performing Lab: Notes/Report: NITRITE Neg PH 6.0 PROTEIN trace S.G 1.005 WBC Neg GLUCOSE Neg KETONES Neg UROBILINOGEN Neg BILIRUBIN Neg BLOOD Neg Reason For Referral No Information Medications Medication [...] W/U Status Risk Notes Problem Anxiety disorder (230530908) Anxiety disorder, unspecified (F41.9) Active confirmed Problem Uncomplicated asthma (disorder) (209522168) Unspecified asthma, uncomplicated (J45.909) Active confirmed Problem Rheumatoid arthritis (71717045) Rheumatoid arthritis, unspecified (M06.9) Active confirmed Problem Fibrocystic breast changes (01287095) Diffuse cystic mastopathy of unspecified breast (N60.19) Active confirmed Problem Abnormal findings on diagnostic imaging of breast (549778539) Other abnormal and inconclusive findings on diagnostic imaging of breast (R92.8) Active confirmed Problem Deep dyspareunia (307957167) Deep dyspareunia (N94.12) Active confirmed Problem COVID-19 (760165726) COVID-19 (U07.1) Active confirmed Vital Signs Temperature 98.6 degrees Fahrenheit 04/24/2025 Blood pressure diastolic 68 mm Hg 04/24/2025 Height 67 in 04/24/2025 Blood pressure systolic 112 mm Hg 04/24/2025 Weight 170 lbs 04/24/2025 BMI 26.62 kg/m2 04/24/2025 Encounters Encounter Location Date Provider Diagnosis Total [address] [place] [address] 04/24/2025 GABI BRENNER Pelvic Pain R10.2 Total [facility] [address] [place] [address] 08/13/2024 GABI BRENNER Inconclusive mammogr am R92.2 [...] 3D 2020 BILATERAL BREAST ULTRASOUND 06/10/2021 Chlamydia/GC Amplification-[id number] 2024 Future Test Test Name Order Date Screening Bilateral Breast Ultrasound Next Appt Details Provider Name:GABI MAGANA Emerita, 08/26/2025 11:00:00 AM, [address], [address], [place], [address], Insurance Providers Payer Name Payer Address Payer Phone Subscriber Number Group Number Insured Name Patient Relationship to Insured Coverage Start Date Coverage End Date R [address] [address] [place], [place] [id number] LIGIA VILLANUEVA Self - patient is the [...]
--- OUTSIDE RECORDS SUMMARY | 2025-06-04 11:28 | XMS_ITS | Encounter Summary ---
Author Organization [employer] Address [address] 7t [place] [address] Care Team Providers Care Transmission Superintendent Name Role Phone Unavailable Primary Care Provider Unavailabl e Encounter Details Date Type Department Care Team (Late st Contact Info) Description 05/10/2023 Abstract [facility] [address] [place], [place] [phone] Андрей Tyler DDS [address] [place], [place] [phone] Social History Tobacco Use Types Packs/Day Years [...]
--- OUTSIDE RECORDS SUMMARY | 2025-06-04 11:28 | XMS_ITS | Clinical Summary ---
Author Organization [facility] Address [address] [place] [address] Care Team Providers Care Seafood Harvester Name Role Phone Unavailable Primary Care Provider [...] patient's age to complete this topic [place] [address] [place] [address]
== END 2025-06-04 11:00 | disposition home or self-care (01) ==
LOC: HO.RHES 10:21
PROVIDERS: PCP Internal Medicine; Visit Provider Internal Medicine Rheumatology
DX: M06.9 Rheumatoid arthritis, unspecified (principal); Z79.899 Other long term (current) drug therapy
CPT/HCPCS: 99214; G2211

== ENCOUNTER 2025-07-01 15:47 | Outpatient (REF) | payer OTHER, SELFPAY ==
--- OUTSIDE RECORDS SUMMARY | 2025-07-01 16:11 | XMS_ITS | Patient Health Record ---
Author Organization [facility] Address [address] [place] [address] Care Team Providers Care Color Artist Name Role Phone DONNA WELCH, [facility] Primary Care Provider Un available BRENNERGABI LARA Unavailable [phone] Allergies Allergen (clinical drug ingredient) Drug/Non Drug Allergy documented on EMR Reaction Allergy Type Onset Date Status Information temporarily unavailable Bactrim sob Drug Allergy Active Results Component Value Reference Range Notes Urinalysis Reviewed date:04/24/2025 05:39:54 PM Interpretation: Performing Lab: Notes/Report: NITRITE Neg PH 6.0 PROTEIN trace S.G 1.005 WBC Neg GLUCOSE Neg KETONES Neg UROBILINOGEN Neg BILIRUBIN Neg BLOOD Neg PDF Report Reviewed date:04/26/2025 11:58:41 AM Interpretation: Performing Lab:[facility] [email or web address], [address], [place], Phone - [phone], Director - [facility] Notes/Report: Chlamydia/GC Amplification Reviewed date:04/29/2025 09:36:32 AM Interpretation: Performing Lab:[facility] [email or web address], [address], [place], Phone - [phone], Director - [facility] Notes/Report: Chlamydia trachomatis, DARIEL Negative Negative Neisseria [...] W/U Status Risk Notes Problem Anxiety disorder (607360658) Anxiety disorder, unspecified (F41.9) Active confirmed Problem Uncomplicated asthma (disorder) (043451687) Unspecified asthma, uncomplicated (J45.909) Active confirmed Problem Rheumatoid arthritis, unspecified (M06.9) Active confirmed Problem Fibrocystic breast changes (07048474) Diffuse cystic mastopathy of unspecified breast (N60.19) Active confirmed Problem Abnormal findings on diagnostic imaging of breast (250233823) Other abnormal and inconclusive findings on diagnostic imaging of breast (R92.8) Active confirmed Problem Deep dyspareunia (832867907) Deep dyspareunia (N94.12) Active confirmed Problem COVID-19 (834872384) COVID-19 (U07.1) Active confirmed Vital Signs Temperature 98.6 degrees Fahrenheit 04/24/2025 Blood pressure diastolic 68 mm Hg 04/24/2025 Height 67 in 04/24/2025 Blood pressure systolic 112 mm Hg 04/24/2025 Weight 170 lbs 04/24/2025 BMI 26.62 kg/m2 04/24/2025 Encounters Encounter Location Date Provider Diagnosis [facility] [address] [place] [address] 04/24/2025 GABI BRENNER Pelvic Pain R10.2 [facility] [employer] [address] [place] [address] 08/13/2024 GABI BRENNER Inconclusive mammogr am R92.2 [...] 3D 2020 BILATERAL BREAST ULTRASOUND 06/10/2021 Chlamydia/GC Amplification-[id number] 2024 Future Test Test Name Order Date Screening Bilateral Breast Ultrasound Next Appt Details Provider Name:GABI MAGANA S, 08/26/2025 11:00:00 AM, [address], [address], [place], [address], Insurance Providers Payer Name Payer Address Payer Phone Subscriber Number Group Number Insured Name Patient Relationship to Insured Coverage Start Date Coverage End Date [employer] [address] [address] [place], [place] [id number] LIGIA VILLANUEVA Self - patient is the insured Medical (General) History Medical History History ICD Code Unspecified asthma, uncomplicated J45.90 9 Anxiety disorder, unspecified F41.9 Diffuse cystic mastopathy of unspecified breast N60.19 Rheumatoid arthritis, unspecified M06.9 COVID-19 U07.1 Surgical History Surgery Date(Month/Year) c section 2008 c section 2013 c section 2014 inguinal hernia repair 2013 tubal ligation 2015 Hospitalization History Reason Date(Month/Year) see surgical hx
--- OUTSIDE RECORDS SUMMARY | 2025-07-01 16:11 | XMS_ITS | Clinical Summary ---
Author Organization [facility] Address [address] [place] [address] Care Team Providers Care Materials Analyst Name Role Phone Unavailable Primary Care Provider [...] patient's age to complete this topic Insurance [place] [address] [place] [address]
--- OUTSIDE RECORDS SUMMARY | 2025-07-01 16:11 | XMS_ITS | Encounter Summary ---
Author Organization [employer] Address [address] 7[address] [place] [address] Care Team Providers Care Residential Mental Health Worker Name Role Phone Unavailable Primary Care Provider Unavailabl e Encounter Details Date Type Department Care Team (Late st Contact Info) Description 05/10/2023 Abstract [facility] [address] [place], [place] [phone] Андрей Tyler DDS [address] [place], [place] [phone] Social History Tobacco Use Types Packs/Day Years [...]
[2025-07-01 18:15] LABS: MANUAL DIFF FLAG NO
[2025-07-01 18:20] LABS: Hematocrit 35.6 % (37.0-47.0); Hemoglobin 11.9 g/dl (12.0-16.0); Imm Gran Abs Auto 0.01 X10*3/uL (0.00-0.03); Imm Gran Pct Auto 0.3 % (0.0-0.4); Lymphocytes Absolute Auto 1.4 X10*3/uL (1.2-4.9); Mean Corpuscular HGB Conc 33.4 g/dl (31.0-35.0); Mean Corpuscular Hemoglobin 27.9 pg (27.0-33.0); Mean Corpuscular Volume 83.6 fL (80.0-98.0); NRBC Abs Auto 0.000 X10*3/uL (0.0-0.012); NRBC Pct Auto 0.0 /100WBC (0.0-0.2); Platelet Count 197 X10*3/uL (160-400); Red Blood Count 4.26 X10*6/uL (4.20-5.50); White Blood Count 3.9 X10*3/uL (4.8-10.8)
== END 2025-07-01 15:48 | disposition home or self-care (01) ==
LOC: HO.WFDLDS 15:47
PROVIDERS: Visit Provider Internal Medicine Rheumatology
DX: M06.9 Rheumatoid arthritis, unspecified (principal); Z79.899 Other long term (current) drug therapy
CPT/HCPCS: 36415; 85025

== ENCOUNTER 2025-09-03 14:24 | Outpatient (REF) | payer OTHER, SELFPAY ==
[2025-09-03 18:05] LABS: MANUAL DIFF FLAG NO
[2025-09-03 18:06] LABS: Hematocrit 35.3 % (37.0-47.0); Hemoglobin 12.1 g/dl (12.0-16.0); Imm Gran Abs Auto 0.01 X10*3/uL (0.00-0.03); Imm Gran Pct Auto 0.3 % (0.0-0.4); Lymphocytes Absolute Auto 1.3 X10*3/uL (1.2-4.9); Mean Corpuscular HGB Conc 34.3 g/dl (31.0-35.0); Mean Corpuscular Hemoglobin 28.1 pg (27.0-33.0); Mean Corpuscular Volume 82.1 fL (80.0-98.0); NRBC Abs Auto 0.000 X10*3/uL (0.0-0.012); NRBC Pct Auto 0.0 /100WBC (0.0-0.2); Platelet Count 187 X10*3/uL (160-400); Red Blood Count 4.30 X10*6/uL (4.20-5.50); White Blood Count 3.4 X10*3/uL (4.8-10.8)
[2025-09-03 18:18] LABS: Alanine Aminotransferase 15 U/L (0-31); Aspartate Amino Transferase 20 U/L (5-31); Estimated Glomerular Filt Rate > 60
--- OUTSIDE RECORDS SUMMARY | 2025-09-03 19:29 | XMS_ITS | Clinical Summary ---
Author Organization [employer] Address [address] [place] [address] Care Team Providers Care Piano Regulator Name Role Phone Unavailable Primary Care Provider [...] 1982 HIV Screening 1982 SDOH Screening 1982 Disability Screening 1982 Alcohol/Substance Use Screening 1994 Family Planning (PISQ) 1997 HPV Vaccines (1 - 3-dose series) 1997 Hepatitis C Screening 2000 Hepatitis B Vaccines (1 of 3 - 19+ 3-dose series) 2001 Pap Smear 2003 Cervical Cancer Screening 2012 HPV/Cotest 2012 Mammogram 2022 DTaP/Tdap/Td Vaccines (2 - Td or Tdap) 11/16/2023 11/16/2013 Tobacco Screening 05/10/2024 05/10/2023 COVID-19 Vaccine ( season) 2025 08/19/2022, 11/05/2021, 04/20/2021, Additional history exists Influenza Vaccine (#1) 2025 2, 07/27/2022, 10/23/2021, Additional history exists Zoster [...] Years) and At-Risk Patients (6 to 49) Years Aged Out No longer eligible based on patient's age to complete this topic RSV under 20 months Aged Out No longe r eligible based on patient's age to complete this topic Rotavirus Vaccines Aged Out No longer eligible based on patient's age to complete this topic Insurance DENTAL - [employer] DENTAL PPO
--- OUTSIDE RECORDS SUMMARY | 2025-09-03 19:29 | XMS_ITS | Clinical Summary ---
Author Organization [facility] Address [address] [place] [address] Care Team Providers Care Station Cook Name Role Phone Unavailable Primary Care Provider [...] 2001 Cervical Cancer Screening: Pap Smear 2003 HPV Vaccines (1 - 3-dose SCDM series) 2009 DTaP,Tdap,and Td Vaccines (3 - Td or Tdap) 11/16/2023 11/16/2013, 04/28/2011 HIV Screening 08/30/2024 Hepatitis C Screening 08/30/2024 Social Influencers of Health Screening 08/30/2024 Depression Screening 11/14/2024 COVID-19 Vaccine ( season) 2025 11/05/2021, 04/20/2021, 03/28/2021 Influenza Vaccine (#1) 2025 , 08/19/2023, 07/27/2022, Additional history exists RSV Immunization Adult Patients (1 - 1-dose 75+ series) 2057 HIB [...]
--- OUTSIDE RECORDS SUMMARY | 2025-09-03 19:29 | XMS_ITS | Encounter Summary ---
Author Organization [employer] Address [address] [place] [address] Care Team Providers Care Corn Picker Name Role Phone Unavailable Primary Care Provider Unavailabl e Encounter Details Date Type Department Care Team (Late st Contact Info) Description 05/10/2023 Abstract [facility] [address] [place], [place] [phone] Андрей Tyler DDS [address] [place], [place] [phone] Social History Tobacco Use Types Packs/Day Years [...]
--- OUTSIDE RECORDS SUMMARY | 2025-09-03 19:29 | XMS_ITS | Encounter Summary ---
Author Organization [employer] Address [address] [place] [address] Care Team Providers Care Accredited Farm Manager Name Role Phone Unavailable Primary Care Provider Unavailabl e Encounter Details Date Type Department Care Team (Late st Contact Info) Description 05/10/2023 Abstract [facility] [place] [facility] [address] [place], [place] [phone] Андрей Tyler DDS [address] [place], [place] [phone] Social History Tobacco Use Types Packs/Day Years [...]
--- OUTSIDE RECORDS SUMMARY | 2025-09-03 19:29 | XMS_ITS | Encounter Summary ---
Author Organization [employer] Address [address] [place] [address] Care Team Providers Care Aerospace Engineer Name Role Phone Unavailable Primary Care Provider Unavailabl e Encounter Details Date Type Department Care Team (Late st Contact Info) Description 05/10/2023 Abstract [facility] [address] [place], [place] [phone] Андрей Tyler DDS [address] [place], [place] [phone] Social History Tobacco Use Types Packs/Day Years [...]
--- OUTSIDE RECORDS SUMMARY | 2025-09-03 19:29 | XMS_ITS | Patient Health Record ---
Author Organization [facility] Address [address] [place] [address] Care Team Providers Care Information Assurance Officer Name Role Phone DONNA WELCH, [facility] Primary Care Provider Un available GABI BRENNER Unavailable [phone] Allergies Allergen (clinical drug ingredient) Drug/Non Drug Allergy documented on EMR Reaction Allergy Type Onset Date Status sulfamethoxazole / trimethoprim Bactrim sob Drug Allergy Active Results Component Value Reference Range Notes Urinalysis Reviewed date:04/24/2025 05:39:54 PM Interpretation: Performing Lab: Notes/Report: NITRITE Neg PH 6.0 PROTEIN trace S.G 1.005 WBC Neg GLUCOSE Neg KETONES Neg UROBILINOGEN Neg BILIRUBIN Neg BLOOD Neg [id number] IGP No Culture 30 Plus Reviewed date:08/29/2025 11:54:50 AM Interpretation: Performing Lab:[facility], [address] [place] [address], [address], [place], Phone - [phone], Director - [facility] Notes/Report: Clinical Information:VAG/CERV [id number] LMP / Prev Treat...HSY=[id number] Dates / Results....06/03/2020 No. of containers..01 ThinPrep Vial DIAGNOSIS: NEGATIVE FOR IN TRAEPITHELIAL LESION OR MALIGNANCY. Specimen adequacy: Satisfactory for evaluation. Endocervical and/or squamous metaplastic cells (endocervical component) are present. Clinician provided ICD10: Z01.419 Z11.51 Performed by: Fina marmolejo, Residential Mortgage Manager (ASCP) . . Note: The Pap smear is a screening test designed to aid in the detection of premalignant and malignant conditions of the uterine cervix. It is not a diagnostic procedure and should not be used as the sole means of detecting cervical cancer. Both false-positive and false-negative reports do occur. . Test Methodology: This liquid based ThinPrep(R) pap test was screened with the use of an image guided system. HPV Aptima Negative Negative This nucleic acid amplification test detects fourteen high-risk HPV types (16,18,31,33,35,39,45,51,52,56, 58,59,66,68) without differentiation. HPV Genotype Reflex Criteria not met, HPV Genotype not performed. PDF Report Reviewed date:09/02/2025 09:56:31 AM Interpretation: Performing Lab:Alyson Willis, [address], [address], [employer], Phone - [phone], Director - [facility] Notes/Report: Clinical Information:VAG/CERV [id number] LMP / Prev Treat...[id number]=[id number] Dates / Results....06/03/2020 No. of containers..01 ThinPrep Vial Chlamydia/GC Amplification Reviewed date:04/29/2025 09:36:32 AM Interpretation: Performing Lab:[facility]ly[facility] Willis, [address], [address], [employer], Phone - [phone], Director - [facility] Notes/Report: Chlamydia trachomatis, DARIEL Negative Negative Neisseria gonorrhoeae, DARIEL Negative Negative PDF Report Reviewed date:04/26/2025 11:58:41 AM Interpretation: Performing Lab:Alyson Willis, [address], [address], [employer], Phone - [phone], Director - [facility] Notes/Report: Reason For Referral No Information Medications Medication SIG (Take, Route, Frequency, Duration) Notes Start Date End Date Status Simponi Active LORazepam 0.5 MG 1 tablet at bedtime as needed Orally Once a day Active Citalopram Hydrobromide 20 MG 1 tablet Orally Once a day; Duration: 30 days Active Sprintec 28 0.25-35 MG-MCG 1 tablet Oral ly Once a day, skipping placebo pills for the first 3 packs; Duration: 84 days 04/24/2025 Active Estradiol 0.1 MG/GM 1 gram Vaginal twice weekly 08/06/2025 Active Amoxicillin Active Social History Tobacco Use: Social History Observation Description Date Details (start date - stop date) Never Smoker NA - NA Tobacco Use/Smoking Question Answer Notes Are you a nonsmoker Sexual History Question Answer Notes Had sex in the past 12 months (vaginal, oral, or anal)? Yes with Men only Prevention strategies discussed: Other Tobacco use other than smoking: Question Answer Notes Are you an other tobacco user? No Problems Problem Type SNOMED Code ICD Code Onset Dates Problem Status W/U Status Risk Notes Problem Gilbert syndrome (79458497) Gilbert syndrome (E80.4) Active confirmed Problem Anxiety disorder (951384233) Anxiety disorder, unspecified (F41.9) Active confirmed Problem Uncomplicated asthma (disorder) (878156174) Unspecified asthma, uncomplicated (J45.909) Active confirmed Problem Rheumatoid arthritis (07042219) Rheumatoid arthritis, unspecified (M06.9) Active confirmed Problem Fibrocystic breast changes (04702912) Diffuse cystic mastopathy of unspecified breast (N60.19) Active confirmed Problem Abnormal findings on diagnostic imaging of breast (041914192) Other abnormal and inconclusive findings on diagnostic imaging of breast (R92.8) Active confirmed Problem Deep dyspareunia (761234410) Deep dyspareunia (N94.12) Active confirmed Problem COVID-19 (575667270) COVID-19 (U07.1) Active confirmed Vital Signs Temperature 98.0 degrees Fahrenheit 08/26/2025 Blood pressure diastolic 74 mm Hg 08/26/2025 Height 67 in 08/26/2025 Blood pressure systolic 118 mm Hg 08/26/2025 Weight 176 lbs 08/26/2025 BMI 27.56 kg/m2 08/26/2025 Encounters Encounter Location Date Provider Diagnosis [facility] [address] [place] [address] 04/24/2025 GABI BRENNER Pelvic Pain R10.2 [facility] [address] [facility] [address] [place] [address] 08/26/2025 GABI BRENNER Encounter for gynecological examination (general) (routine) without abnormal findings Z01.419 ; Encounter for screening mammogram for malignant neoplasm of breast Z12.31 ; Encounter for surveillance of contraceptive pills Z30.41 and Encounter for screening for human papillomavirus (HPV) Z11.51 [facility] [address] [place] [address] 08/05/2025 GABI BRENNER Assessments Encounter Date Diagnosis (ICD Code) Assessment Notes Treatment Notes Treatment Clinical Notes Section Notes 04/24/2025 Pelvic Pain (ICD-10 - R10.2) Pain is most consistent with endometriosis and so will treat accordingly. No contraindications to combined hormonal contraception use. Symptoms of thromboembolic events weree reviewed using the ACHES acronym. Will rule out ovarian pathology/uterine fibroids with ultrasound. 08/26/2025 Encounter for gynecological examination (general) (routine) without abnormal findings (ICD-10 - Z01.419) Discussed cervical cancer screening with either cytology alone every 3 years or high risk HPV co-testing every 5 years as per ASCCP guidelines. Advised continued annual pelvic exams. Patient encouraged to increase her level of exercise. SBE technique encouraged/taught. Patient reminded when annual mammogram is due. 08/26/2025 Encounter for screening mammogram for malignant neoplasm of breast (ICD-10 - Z12.31) 08/26/2025 Encounter for surveillance of contraceptive pills (ICD-10 - Z30.41) No contraindications to combined hormonal contraception use. Symptoms of thromboembolic events weree reviewed using the ACHES acronym. 08/26/2025 Encounter for screening for human papillomavirus (HPV) (ICD-10 - Z11.51) Plan Of Treatment Pending Test Test Name Order Date Urinalysis 06/25/2020 Urinalysis 07/14/2021 Ultrasound : Pelvic 05/25/2017 ONE SWAB 07/14/2021 THIN PREP,HPV,MAYLIN IF HPV+ (>29YR)(SCRN) 03/08/2017 Screening Bilateral Breast Ultrasound Screening Bilateral Breast Ultrasound Screening Bilateral Breast Ultrasound Screening Bilateral Breast Ultrasound ULTRASOUND: PELVIC W/TRANSVAGINAL 2024 MM Digital Screening Mammogram 3D 2024 MM Digital Screening Mammogram 3D 2022 MM Digital Screening Mammogram 3D 2023 MM Digital Screening Mammogram 3D 2020 BILATERAL BREAST ULTRASOUND 06/10/2021 Chlamydia/GC Amplification-[id number] 2024 Future Test Test Name Order Date Screening Bilateral Breast Ultrasound Next Appt Details Provider Name:GABI Felder, 09/01/2026 10:30:00 AM, [address], [address], [place], [address], Insurance Providers Payer Name Payer Address Payer Phone Subscriber Number Group Number Insured Name Patient Relationship to Insured Coverage Start Date Coverage End Date [facility] [address] [address] [place], [place] [id number] LIGIA VILLANUEVA Self - patient is the insured Medical (General) History Medical History History ICD Code Unspecified asthma, uncomplicated J45.90 9 Anxiety disorder, unspecified F41.9 Diffuse cystic mastopathy of unspecified breast N60.19 Rheumatoid arthritis, unspecified M06.9 COVID-19 U07.1 Gilbert syndrome E80.4 Surgical History Surgery Date(Month/Year) c section 2008 c section 2013 c section 2014 inguinal hernia repair 2013 tubal ligation 2014 Hospitalization History Reason Date(Month/Year) see surgical hx
== END 2025-09-03 14:25 | disposition home or self-care (01) ==
LOC: HO.WFDLDS 14:24
PROVIDERS: Visit Provider Internal Medicine Rheumatology
DX: Z79.899 Other long term (current) drug therapy (principal)
CPT/HCPCS: 36415; 82565; 84450; 84460; 85025; 85652; 86140